=== PATIENT | female | born 1955 | race Caucasian/White ===

== ENCOUNTER 2020-01-06 09:59 | Day surgery (SDC) | payer BC, OTHER ==
[~2020-01-06] VITALS: Ht 162.6 cm; Wt 75.7 kg
--- NOTE | ~2020-01-06 | O ---
[facility] [place] [address] OPERATIVE REPORT Name: MISSY OLGUIN Room #: 150-8 [facility] M..#: [id number] Admission: 01/06/20 Attend Phys: Rob Clark MD Discharge: Date of : 57 Report #: [id number] THIS REPORT FOR: cc: DMITRI BRADFORD NP, LINDA NP White, William L. MD ~ CC: Alejandro Clark DATE OF SERVICE: 01/06/2020 SURGEON: Rob Clark MD BRIGHT CUTTER: None. PREOPERATIVE DIAGNOSIS: Bilateral upper lid dermatochalasia with superior visual field defect. POSTOPERATIVE DIAGNOSIS: Bilateral upper lid dermatochalasia with superior visual field defect. OPERATION PERFORMED: Bilateral upper lid functional blepharoplasty. ANESTHESIA: Local with IV sedation. COMPLICATIONS: None. 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 Visual field testing demonstrates dense superior visual defects. Retesting with the upper lid elevated shows an improvement in visual field loss of over 30% and in excess of 12 degrees. The current procedures are undertaken in order to improve the patient's visual function. Informed consent was obtained to include but not limited to the loss of vision, bleeding, infection, scarring, failure to improve the problem and need for further surgery. DESCRIPTION OF OPERATION: The patient was taken to the operating room, where 2% Xylocaine with epinephrine mixed with equal parts of 0.75% Marcaine with Wydase was administered transcutaneously to each upper lid. The patient was then prepped and draped in the usual sterile fashion and a skin-marking pen was then utilized to outline an upper lid crease that was symmetrical on each side. Graefe forceps were then used to quantitate the redundant upper lid skin and it [address] [address] OPERATIVE REPORT Name: MISSY OLGUIN Room #: 150-8 [facility].#: [id number] Admission: 01/06/20 Attend Phys: Rob Clark MD Discharge: Date of : 57 Report #: [id number] was similarly outlined. The incisions were then made with Watson scissors and a skin-muscle flap removed from each side with high-temp cautery. Hemostasis was achieved with the monopolar cautery as it was throughout the case. The orbital septum was then identified and the central and medial fat pads were inspected. The redundant soft tissue was then sculpted with the monopolar cautery. The upper lid crease was then reformed with tightening of the pretarsal orbicularis muscle. The upper lid crease was then further reformed with multiple interrupted 6-0 chromic sutures. The skin was then closed with a running 6-0 plain gut suture. The wound was then cleaned and dressed with ophthalmic antibiotic ointment and a nonstick dressing. The patient was transported to the recovery area, where cold compresses were applied, having tolerated the procedure well with no anesthetic or operative complications being noted. By: [id number] Rob Clark MD /nt
[~2020-01-06 09:59] MED LIST: AMLODIPINE BESY10 MG PO; CELEXA 20 MG TA20 MG PO; HYDROCHLOROTH12.5 M1 PO; PRAZOSIN HCL1 MG PO; STRATTERA40 MG PO; TOPROL XL200 MG PO; XANAX 0.25 MG0.25 MG PO; ZOCOR 20 MG TAB20 M1 PO
[2020-01-06 10:42] VITALS: BP 139/76
== END 2020-01-06 12:40 | disposition home or self-care (01) ==
LOC: TBA 09:59 → OR 09:59 → TBA 10:01 → OR 12:40
DX: H02.834 Dermatochalasis of left upper eyelid (principal); H02.831 Dermatochalasis of right upper eyelid; H53.462 Homonymous bilateral field defects, left side; H53.461 Homonymous bilateral field defects, right side; I10 Essential (primary) hypertension; E78.5 Hyperlipidemia, unspecified; F32.9 Major depressive disorder, single episode, unspecified; F41.9 Anxiety disorder, unspecified; Z98.890 Other specified postprocedural states; Z79.899 Other long term (current) drug therapy; Z11.59 Encounter for screening for other viral diseases; Z87.891 Personal history of nicotine dependence; Z96.641 Presence of right artificial hip joint; Z88.2 Allergy status to sulfonamides
CPT/HCPCS: 50010; 50101; 50386; 50398; 51636; 56531; 62110; 62850; 70005